=== PATIENT | female | born 1960 | race Caucasian/White ===

== ENCOUNTER 2017-03-24 16:14 | Emergency (ER) | payer MEDICARE, MEDICAID ==
--- NOTE | 2017-03-24 17:12 | RAD ---
CHEST TWO VIEWS 03/24/17 HISTORY: Cough. COMPARISON: 03/16/17. FINDINGS: Cardiac silhouette and pulmonary vasculature are unremarkable. Mediastinum is midline. There is no co nfluent air space consolidation, pneumothorax, or pleural fluid evident. IMPRESSION: No active cardiopulmonary abnormalities are demonstrated. POS: [facility]
== END 2017-03-24 17:35 | disposition home or self-care (01) ==
LOC: SCSER 16:14
DX: J01.90 Acute sinusitis, unspecified (principal); J45.909 Unspecified asthma, uncomplicated; J38.3 Other diseases of vocal cords; E78.5 Hyperlipidemia, unspecified; I10 Essential (primary) hypertension; F41.9 Anxiety disorder, unspecified; F32.9 Major depressive disorder, single episode, unspecified; Z86.73 Personal history of transient ischemic attack (TIA), and cerebral infarction without residual deficits; Z79.899 Other long term (current) drug therapy; I25.2 Old myocardial infarction
CPT/HCPCS: 71046; 94640; J7620

== ENCOUNTER 2017-06-21 13:58 | Outpatient (CLI) | payer MEDICARE, MEDICAID ==
--- NOTE | 2017-06-21 15:36 | RAD ---
THREE VIEWS LUMBAR SPINE: INDICATION: History of back surgery and back pain. FINDINGS: Standing neutral examination demonstrates grade I anterolisthesis of L4 on L5. There is moderate to severe degenerative disk disease at L3-4 through L5-S1. There is slight retrolisthesis of L3 on L4 w ith extension. No additional abnormal translational motion is noted. There are surgical clips seen within the lower pelvis. No acute fracture is evident. IMPRESSION: 1. Grade I anterolisthesis of L4 on L5 has developed since the comparison dated 09/17/09. No abnorma l translational motion is evident at this level. 2. Mild retrolisthesis is seen at L3 on L4 with extension only with reduction in the neutral and fle xion positions. POS: [facility]
== END 2017-06-21 13:59 | disposition home or self-care (01) ==
LOC: TBSIIMAG 13:58
PROVIDERS: ATTEND Neurological Surgery
DX: M54.16 Radiculopathy, lumbar region (principal); M43.16 Spondylolisthesis, lumbar region
CPT/HCPCS: 72100

== ENCOUNTER 2017-07-17 14:16 | Outpatient (CLI) | payer MEDICARE, MEDICAID ==
--- NOTE | 2017-07-17 16:38 | EKG ---
Test Reason : Blood Pressure : / mmHG Vent. Rate : 068 BPM Atrial Rate : 068 BPM P-R Int : 152 ms QRS Dur : 090 ms QT Int : 378 ms P-R-T Axes : 042 022 015 degrees QTc Int : 401 ms Normal sinus rhythm Normal ECG When compared with ECG of 07-JUN-2014 07:35, No significant change was found Confirmed by DOMINGO STEWART ([id number]) on 07/17/2017 4:38:23 PM Referred By: MARCIE Confirmed By:DOMINGO STEWART
[2017-07-17 16:40] LABS: Anion Gap 13 mmol/L (10-20); BUN (Urea Nitrogen) 16 mg/dL (9.8-20.1); Calc. Creatinine Clearance 0 mL/min (70-130); Calcium 9.8 mg/dL (7.8-10.44); Carbon Dioxide 26 mmol/L (22-29); Chloride 104 mmol/L (98-107); Estimated GFR-MDRD 62; Glucose 97 mg/dL (70-105); Potassium 4.7 mmol/L (3.5-5.1); Sodium 138 mmol/L (136-145)
== END 2017-07-17 14:17 | disposition home or self-care (01) ==
LOC: LABBT 14:16
PROVIDERS: ATTEND Neurological Surgery
DX: Z01.818 Encounter for other preprocedural examination (principal); M54.16 Radiculopathy, lumbar region
CPT/HCPCS: 80048; 93005; 93010

== ENCOUNTER 2017-07-24 07:35 | Day surgery (SDC) | payer MEDICARE, MEDICAID ==
[2017-07-17 14:43] VITALS: BMI 34.7
--- NOTE | 2017-07-23 23:13 | HP ---
DATE OF ADMISSION: 07/24/2017 HISTORY OF PRESENT ILLNESS: Ms. Ornelas presents today for evaluation of chronic history of lower back pain with radicular components from time to time, her steroid begins in 1990 with a fall and 2 lumba r surgeries where she reports 3.5 years recovery, on rehab, motor dysfunction of the left lower extre mity. She has now been with new total left lower extremity numbness since that time, since late fall or Pelzer time last year, she has now also developed right lower extremity L5 pain that is starti ng to include numbness as well. She has received several injections with pain management, [facility] Moreno which only provided short term relief. MRI from [facility] reveals grade 1 anterolisthesis of L4-L5 and grade 1 retrolisthesis at L5-S1. There is superimposed severe foraminal stenosis on the right at L5 which matches her symptoms well. The interpedicular distance at this le yuan is narrowed due to degenerative disk disease at L5. She does have significant back pain as well, but her major concern is that of radiating pain and numbness in the right lower extremity. PAST MEDICAL HISTORY: Essential hypertension, migraine headaches, asthma, depression, bipolar disord er, chronic lower back pain. ALLERGIES: CODEINE, CLONIDINE, and ASPIRIN. PAST SURGICAL HISTORY: Two lumbar decompressions. PHYSICAL EXAMINATION: The patient is alert and oriented x3. Gait is mildly antalgic. Lower extremi ty motor exam appears to be normal in all movements. She does exhibit poor effort in the right lower extremity movements. Gait is unaffected. ASSESSMENT: Lumbar radiculopathy, spondylolisthesis and back pain. PLAN: Dr. Delacruz met with the patient, reviewed imaging and advocated for an L4-S1 decompression and fusion. He explained to the patient the risks, benefits, and alternatives of the procedure. The pat ient expressed understanding and would like to move forward surgery as discussed. I do believe the p atient is mentally competent and capable of making medical decisions for herself and we will move for kramer with surgery as planned. Diaz Pablo PA-C, dictating under Pranav Delacruz M.D.
[2017-07-24] MEDS ORDERED: CEFAZOLIN/Water 2 GM/20 ML SYRINGE ONE ×2 (07:44→14:29)
[2017-07-24] MEDS ORDERED: Bupivacaine HCl 0.5%/Epinephrine 1:200,000/PF 30 ml Vial ONE (07:49)
[2017-07-24] MEDS ORDERED: Thrombin 5000 UNITS/5 ML VIAL ONE (07:49)
[2017-07-24] MEDS ORDERED: Morphine 4 MG/ML VIAL ONE (08:01)
[2017-07-24] MEDS ORDERED: Fentanyl 100 MCG/2 ML VIAL ONE (08:12)
[2017-07-24] MEDS ORDERED: Ondansetron HCl/PF 4 MG/2 ML Vial ONE (10:41)
[2017-07-24] MEDS ORDERED: PROPOFOL 200 MG/20 ML VIAL ONE (10:41)
[2017-07-24] MEDS ORDERED: Lidocaine 1% PF 5 ML VIAL ONE (10:41)
[2017-07-24] MEDS ORDERED: ePHEDrine/0.9% NaCl/PF SYRINGE 50 mg/10 ml ONE (10:41)
[2017-07-24] MEDS ORDERED: Morphine 10 MG/ML VIAL ONE (11:04)
--- NOTE | 2017-07-24 12:37 | OP ---
DATE OF PROCEDURE: 07/24/2017 SURGEON: Pranav Delacruz M.D. TIGHT BARREL INSPECTOR: Diaz Pablo PA-C. INDICATION: Pain. DIAGNOSES: Advanced degenerative disk disease, lumbar radiculopathy and lumbar stenosis. PROCEDURES PERFORMED: L4 through S1 facetectomies, L4 through S1 posterior lateral instrumented fusi on, placement of allograft, placement of autograft. ANESTHESIA: General. TECHNIQUE: The patient was brought into the operating room and placed under general anesthesia. She was flipped from a supine to a prone position on the operating room table. A linear incision was pl anned spanning L4-S1. After prepping and draping and after an appropriate operative pause, the incis ion was created. The soft tissues were swept away from midline. Self-retaining retractors were plac ed in the wound for optimal exposure. After confirming appropriate levels with C-arm fluoroscopy, he milaminectomies and facetectomies were performed spanning L4-S1. After identification of the pedicle s as well as the exiting and descending nerve roots, pedicle screws were placed bilaterally at L4 thr ough S1. An intraoperative 3D CT scan was performed, which showed excellent placement of the hardwar e. After decorticating the bone around the screws, allograft and autograft material was placed along the lateral confines of the instrumentation construct. Wound was irrigated. Hemostasis was maintai patricia throughout. The wound was then closed in anatomic layers and a pressure dressing was applied. T here were no known procedural complications.
[2017-07-24] MEDS ORDERED: HYDROcodone/Acetaminophen 7.5/325 mg Tablet ONE (14:50)
== END 2017-07-24 15:25 | disposition home or self-care (01) ==
LOC: SDC 07:35
PROVIDERS: ATTEND Neurological Surgery
PROC: 0SG107J Fusion of 2 or more Lumbar Vertebral Joints with Autologous Tissue Substitute, Posterior Approach, Anterior Column, Open Approach (ICD-10-PCS; principal; 2017-07-24)
PROC: 0SG10KJ Fusion of 2 or more Lumbar Vertebral Joints with Nonautologous Tissue Substitute, Posterior Approach, Anterior Column, Open Approach (ICD-10-PCS; 2017-07-24)
DX: M48.061 Spinal stenosis, lumbar region without neurogenic claudication (principal); M43.16 Spondylolisthesis, lumbar region; M51.16 Intervertebral disc disorders with radiculopathy, lumbar region; I10 Essential (primary) hypertension; F31.9 Bipolar disorder, unspecified; Z88.5 Allergy status to narcotic agent; Z88.8 Allergy status to other drugs, medicaments and biological substances; Z79.899 Other long term (current) drug therapy; Z98.890 Other specified postprocedural states
CPT/HCPCS: 20931; 20936; 22612; 22614; 22842; 76001; C1713 ×2; C1768; 96374; J0670; J2001; J2270; J2405; J2704; J3010; J7620

== ENCOUNTER 2021-05-27 11:42 | Inpatient (IN) | payer MEDICARE, MEDICAID ==
[2021-06-01] MEDS ORDERED: EPINEPHrine 1 MG/ML AMP ONE (06:10)
[2021-06-01] MEDS ORDERED: Neomycin-Polymyxin 1 ML AMP ONE (06:10)
[2021-06-01] MEDS ORDERED: Bupivacaine PF 0.5% 30 ML VIAL ONE (06:10)
[2021-06-01] MEDS ORDERED: Thrombin 5000 UNITS/5 ML VIAL ONE (06:10)
[2021-06-01] MEDS ORDERED: Phenylephrine 10 MG/ML VIAL ONE (06:36)
[2021-06-01] MEDS ORDERED: Fentanyl 250 MCG/5 ML VIAL ONE (06:36)
[2021-06-01] MEDS ORDERED: diphenhydrAMINE 25 MG CAP PO PRN (06:41)
[2021-06-01] MEDS ORDERED: Milk Of Magnesia 30 ML UDCUP PO PRN (06:41)
[2021-06-01] MEDS ORDERED: Ondansetron PF 4 MG/2 ML Vial IVP PRN (06:41)
[2021-06-01] MEDS ORDERED: Promethazine HCl 25 MG/ML VIAL IM PRN ×2 (06:41→14:12)
[2021-06-01] MEDS ORDERED: Morphine 2 MG/ML VIAL SLOW IVP PRN (06:41)
[2021-06-01] MEDS ORDERED: Bisacodyl 10 MG SUPP PR PRN (06:41)
[2021-06-01] MEDS ORDERED: Acetaminophen 325 MG TAB PO PRN (06:41)
[2021-06-01] MEDS ORDERED: Mag-Al 1200 mg/1200 mg/30 ML UDCUP PO PRN (06:41)
[2021-06-01] MEDS ORDERED: traMADol HCl 50 MG TAB PO PRN (06:41)
[2021-06-01] MEDS ORDERED: ceFAZolin 2 GM/Dextrose 50 ML 2 GM in Premix Bag 1 BAG IVPB SCH (06:45)
[2021-06-01] MEDS ORDERED: ceFAZolin (BATCH) 2 GM/100 ML BAG ONE (06:50)
[2021-06-01] MEDS ORDERED: Midazolam HCl 2 mg/2 ml Vial ONE (06:50)
[2021-06-01] MEDS ORDERED: Albuterol Sulfate HFA (OR ONLY) ONE (06:59)
[2021-06-01] MEDS ORDERED: PROPOFOL 200 MG/20 ML VIAL ONE (07:14)
[2021-06-01] MEDS ORDERED: Ketorolac Tromethamine 30 MG/ML VIAL ONE (07:14)
[2021-06-01] MEDS ORDERED: PHENYLEPHRINE-NS 100 MCG/ML 10 ML SYRINGE ONE (07:14)
[2021-06-01] MEDS ORDERED: Ondansetron PF 4 MG/2 ML Vial ONE (07:14)
[2021-06-01] MEDS ORDERED: ePHEDrine 50 MG/ML VIAL ONE (07:14)
[2021-06-01] MEDS ORDERED: Glycopyrrolate 0.2 MG/ML 5 ML SYRINGE ONE (07:14)
[2021-06-01] MEDS ORDERED: Rocuronium Bromide 10 MG/ML (10ML VIAL) ONE (07:14)
[2021-06-01] MEDS ORDERED: Lidocaine 1% PF 5 ML VIAL ONE (07:14)
[2021-06-01] MEDS ORDERED: Non-Formulary Item 1 EACH (Gabapentin [Gabapentin] 800 MG Tablet) PO SCH (09:00)
[2021-06-01] MEDS ORDERED: ceFAZolin (BATCH) 2 GM in Premix Bag 1 BAG IVPB SCH (14:00)
[2021-06-01] MEDS ORDERED: Ondansetron HCl/PF 4 MG/2 ML Vial IVP PRN (14:12)
[2021-06-01] MEDS ORDERED: Promethazine HCl 25 MG/ML VIAL IVPB PRN (14:12)
[2021-06-01] MEDS ORDERED: Fentanyl 100 MCG/2 ML VIAL ONE ×2 (14:29→14:47)
[2021-06-01] MEDS ORDERED: HYDROmorphone 0.5 MG/0.5 ML SYRINGE ONE ×2 (15:37→15:54)
[2021-06-01 15:47] LABS: Platelet Count 223 thou/uL (130-400)
[2021-06-01] MEDS ORDERED: HYDROcodone/Acetaminophen 10/325 mg Tablet ONE (16:15)
[2021-06-01] MEDS ORDERED: Methocarbamol 1 GM in Sodium Chloride 0.9% 100 ML IVPB SCH (16:45)
[2021-06-01] MEDS: Gabapentin 400 MG CAP PO SCH ×3 (17:38→21:01)
[2021-06-01] MEDS: Sodium Chloride 0.9% 1,000 ML IV SCH ×2 (18:33→21:14)
[2021-06-01] MEDS: Potassium Chloride 10 MEQ TAB PO SCH ×2 (19:19→21:01)
[2021-06-01] MEDS: Lisinopril/Hydrochlorothiazide 10 mg/12.5 mg Tablet PO SCH (19:19)
[2021-06-01] MEDS: ceFAZolin (BATCH) 2 GM in Premix Bag 1 BAG IVPB SCH (21:01)
[2021-06-01] MEDS: HYDROcodone/Acetaminophen 10/325 mg Tablet PO PRN (21:01)
[2021-06-01] MEDS: Montelukast Sodium 10 mg Tablet PO SCH (21:01)
[2021-06-01 22:28] VITALS: BMI 39.9
[2021-06-02] MEDS: HYDROcodone/Acetaminophen 10/325 mg Tablet PO PRN ×2 (02:28→20:23)
[2021-06-02] MEDS: ceFAZolin (BATCH) 2 GM in Premix Bag 1 BAG IVPB SCH (05:30)
[2021-06-02] MEDS: HYDROcodone/Acetaminophen 7.5/325 mg Tablet PO PRN ×2 (08:43→13:18)
[2021-06-02] MEDS: Lisinopril/Hydrochlorothiazide 10 mg/12.5 mg Tablet PO SCH (08:44)
[2021-06-02] MEDS: Gabapentin 400 MG CAP PO SCH ×3 (08:44→20:23)
[2021-06-02] MEDS: Potassium Chloride 10 MEQ TAB PO SCH ×2 (08:44→20:23)
[2021-06-02] MEDS ORDERED: Albuterol Sulfate 2.5 mg/3 ml Neb NEB PRN (11:53)
[2021-06-02] MEDS: Sodium Chloride 0.9% 1,000 ML IV SCH ×3 (12:56→22:49)
[2021-06-02] MEDS: Baclofen 10 MG TAB PO SCH ×2 (13:19→17:20)
[2021-06-02] MEDS: Cephalexin 250 MG CAP PO SCH ×2 (13:20→17:21)
[2021-06-02] MEDS ORDERED: Tamsulosin HCl 0.4 MG CAP PO SCH (14:15)
[2021-06-02] MEDS: Lubiprostone 24 MCG CAP PO SCH (17:20)
[2021-06-02] MEDS: Cyclobenzaprine 10 MG TAB PO PRN (17:23)
[2021-06-02] MEDS: Famotidine 20 MG TAB PO SCH (20:22)
[2021-06-02] MEDS: Atorvastatin Calcium 10 MG TAB PO SCH (20:22)
[2021-06-02] MEDS: Venlafaxine HCl XR 150 MG CAP PO SCH (20:23)
[2021-06-02] MEDS: Montelukast Sodium 10 mg Tablet PO SCH (20:23)
[2021-06-02] MEDS ORDERED: Non-Formulary Item 1 EACH (Quetiapine Fumarate [Seroquel] 400 MG Tablet) PO SCH (21:00)
[2021-06-02] MEDS ORDERED: Venlafaxine HCl XR 75 MG CAP PO SCH (21:00)
[2021-06-02] MEDS ORDERED: RANITIDINE HCL 300 MG PO SCH (21:00)
[2021-06-02] MEDS ORDERED: Non-Formulary Item 1 EACH (Venlafaxine Hcl [Venlafaxine Hcl Er] 150 MG Tab.Er.24) PO SCH (21:00)
[2021-06-02] MEDS ORDERED: Sodium Chloride 0.9% 500 ML IV SCH (22:45)
[2021-06-03] MEDS: Cephalexin 250 MG CAP PO SCH ×4 (00:28→17:37)
[2021-06-03] MEDS: HYDROcodone/Acetaminophen 10/325 mg Tablet PO PRN ×2 (02:17→13:41)
[2021-06-03 05:48] LABS: Anion Gap 13 mmol/L (10-20); BUN (Urea Nitrogen) 9 mg/dL (9.8-20.1); Calc. Creatinine Clearance 152 mL/min (70-130); Carbon Dioxide 22 mmol/L (23-31); Chloride 108 mmol/L (98-107); Glucose 114 mg/dL (80-115); Potassium 3.9 mmol/L (3.5-5.1); Sodium 139 mmol/L (136-145)
[2021-06-03 07:33] LABS: #Eosinphils 0.1 thou/uL (0.0-0.7); #Lymphocytes 1.2 thou/uL (1.20-3.40); #Monocytes 0.5 thou/uL (0.11-0.59); %Basophils 0.2 % (0.0-1.0); %Eosinophils 1.4 % (0.0-10.0); %Lymphocytes 26.1 % (21.0-51.0); %Monocytes 9.8 % (0.0-10.0); %Neutrophils 62.5 % (42.0-75.0); Hemoglobin 6.4 g/dL (12.0-16.0); Mean Corpuscular HGB CONC 32.8 g/dL (32.0-36.0); Mean Corpuscular Hemoglobin 31.2 pg (27.0-31.0); Mean Corpuscular Volume 95.3 fL (78.0-98.0); Mean Platelet Volume 9.4 fL (7.4-10.4); Platelet Count 91 thou/uL (130-400); RBC Distribution Width 12.2 % (11.5-14.5); Red Blood Cell (RBC) Count 2.06 mill/uL (4.20-5.40); White Blood Cell (WBC) Count 4.8 thou/uL (4.8-10.8)
[2021-06-03 08:11] LABS: #Eosinphils 0.1 thou/uL (0.0-0.7); #Lymphocytes 1.2 thou/uL (1.20-3.40); #Monocytes 0.4 thou/uL (0.11-0.59); %Basophils 0.4 % (0.0-1.0); %Eosinophils 1.1 % (0.0-10.0); %Monocytes 9.2 % (0.0-10.0); %Neutrophils 64.2 % (42.0-75.0); Hemoglobin 6.2 g/dL (12.0-16.0); Mean Corpuscular HGB CONC 32.8 g/dL (32.0-36.0); Mean Corpuscular Volume 94.6 fL (78.0-98.0); Mean Platelet Volume 9.1 fL (7.4-10.4); Platelet Count 93 thou/uL (130-400); RBC Distribution Width 12.4 % (11.5-14.5); Red Blood Cell (RBC) Count 2.01 mill/uL (4.20-5.40); White Blood Cell (WBC) Count 4.7 thou/uL (4.8-10.8)
[2021-06-03] MEDS: Lubiprostone 24 MCG CAP PO SCH ×2 (08:37→17:37)
[2021-06-03] MEDS: Gabapentin 400 MG CAP PO SCH ×3 (08:37→20:50)
[2021-06-03] MEDS: Baclofen 10 MG TAB PO SCH ×3 (08:40→17:37)
[2021-06-03] MEDS: Potassium Chloride 10 MEQ TAB PO SCH ×2 (08:40→20:52)
[2021-06-03] MEDS: Lisinopril/Hydrochlorothiazide 10 mg/12.5 mg Tablet PO SCH (08:46)
[2021-06-03] MEDS ORDERED: Tamsulosin HCl 0.4 MG CAP PO SCH (09:00)
[2021-06-03] MEDS: Sodium Chloride 0.9% 1,000 ML IV SCH (12:07)
[2021-06-03] MEDS: HYDROcodone/Acetaminophen 7.5/325 mg Tablet PO PRN (15:33)
[2021-06-03] MEDS: Famotidine 20 MG TAB PO SCH (20:50)
[2021-06-03] MEDS: Atorvastatin Calcium 10 MG TAB PO SCH (20:50)
[2021-06-03] MEDS: Venlafaxine HCl XR 150 MG CAP PO SCH (20:51)
[2021-06-03] MEDS: Montelukast Sodium 10 mg Tablet PO SCH (20:52)
[2021-06-04] MEDS: HYDROcodone/Acetaminophen 10/325 mg Tablet PO PRN ×2 (00:10→19:27)
[2021-06-04] MEDS: Cephalexin 250 MG CAP PO SCH ×5 (00:11→23:46)
[2021-06-04] MEDS: Cyclobenzaprine 10 MG TAB PO PRN (01:09)
[2021-06-04 04:09] LABS: #Eosinphils 0.1 thou/uL (0.0-0.7); #Lymphocytes 1.2 thou/uL (1.20-3.40); #Monocytes 0.5 thou/uL (0.11-0.59); #Neutrophils 3.6 thou/uL (1.40-6.50); %Basophils 0.4 % (0.0-1.0); %Eosinophils 2.1 % (0.0-10.0); %Lymphocytes 21.8 % (21.0-51.0); %Monocytes 9.7 % (0.0-10.0); Hemoglobin 7.7 g/dL (12.0-16.0); Mean Corpuscular HGB CONC 33.6 g/dL (32.0-36.0); Mean Corpuscular Hemoglobin 31.3 pg (27.0-31.0); Platelet Count 120 thou/uL (130-400); RBC Distribution Width 12.9 % (11.5-14.5); Red Blood Cell (RBC) Count 2.46 mill/uL (4.20-5.40); White Blood Cell (WBC) Count 5.4 thou/uL (4.8-10.8)
[2021-06-04 04:24] LABS: Anion Gap 12 mmol/L (10-20); BUN (Urea Nitrogen) 7 mg/dL (9.8-20.1); Calc. Creatinine Clearance 164 mL/min (70-130); Calcium 8.4 mg/dL (7.8-10.44); Carbon Dioxide 23 mmol/L (23-31); Chloride 109 mmol/L (98-107); Glucose 104 mg/dL (80-115); Potassium 3.6 mmol/L (3.5-5.1); Sodium 140 mmol/L (136-145)
[2021-06-04] MEDS: Sodium Chloride 0.9% 1,000 ML IV SCH ×2 (07:52→14:43)
[2021-06-04 08:57] LABS: Prothrombin Time 13.2 sec (12.0-14.7)
[2021-06-04 08:58] LABS: PTT 32.7 sec (22.9-36.1)
[2021-06-04] MEDS: Baclofen 10 MG TAB PO SCH ×3 (10:28→17:16)
[2021-06-04] MEDS: Lubiprostone 24 MCG CAP PO SCH ×2 (10:28→17:16)
[2021-06-04] MEDS: Gabapentin 400 MG CAP PO SCH ×3 (10:28→21:20)
[2021-06-04] MEDS: Potassium Chloride 10 MEQ TAB PO SCH ×2 (10:29→21:23)
[2021-06-04 13:00] LABS: #Eosinphils 0.1 thou/uL (0.0-0.7); #Monocytes 0.5 thou/uL (0.11-0.59); #Neutrophils 4.1 thou/uL (1.40-6.50); %Basophils 0.2 % (0.0-1.0); %Eosinophils 1.8 % (0.0-10.0); %Lymphocytes 16.9 % (21.0-51.0); %Monocytes 8.2 % (0.0-10.0); Hemoglobin 9.2 g/dL (12.0-16.0); Mean Corpuscular HGB CONC 33.6 g/dL (32.0-36.0); Mean Corpuscular Hemoglobin 30.9 pg (27.0-31.0); Mean Corpuscular Volume 92.1 fL (78.0-98.0); Mean Platelet Volume 8.7 fL (7.4-10.4); Platelet Count 131 thou/uL (130-400); RBC Distribution Width 13.3 % (11.5-14.5); Red Blood Cell (RBC) Count 2.96 mill/uL (4.20-5.40); White Blood Cell (WBC) Count 5.6 thou/uL (4.8-10.8)
[2021-06-04] MEDS ORDERED: traMADol HCl 50 MG TAB PO PRN (19:54)
[2021-06-04] MEDS ORDERED: tiZANidine HCl 4 MG TAB PO PRN (19:55)
[2021-06-04] MEDS: Famotidine 20 MG TAB PO SCH (21:20)
[2021-06-04] MEDS: Montelukast Sodium 10 mg Tablet PO SCH (21:21)
[2021-06-04] MEDS: Venlafaxine HCl XR 150 MG CAP PO SCH (21:21)
[2021-06-04] MEDS: Atorvastatin Calcium 10 MG TAB PO SCH (21:22)
[2021-06-05 05:14] LABS: #Eosinphils 0.2 thou/uL (0.0-0.7); #Lymphocytes 1.4 thou/uL (1.20-3.40); #Monocytes 0.5 thou/uL (0.11-0.59); #Neutrophils 2.6 thou/uL (1.40-6.50); %Basophils 0.7 % (0.0-1.0); %Eosinophils 4.2 % (0.0-10.0); %Lymphocytes 29.5 % (21.0-51.0); %Neutrophils 54.6 % (42.0-75.0); Hemoglobin 9.2 g/dL (12.0-16.0); Mean Corpuscular HGB CONC 33.6 g/dL (32.0-36.0); Mean Corpuscular Hemoglobin 31.1 pg (27.0-31.0); Mean Corpuscular Volume 92.6 fL (78.0-98.0); Mean Platelet Volume 9.4 fL (7.4-10.4); Platelet Count 157 thou/uL (130-400); RBC Distribution Width 13.5 % (11.5-14.5); Red Blood Cell (RBC) Count 2.96 mill/uL (4.20-5.40); White Blood Cell (WBC) Count 4.8 thou/uL (4.8-10.8)
[2021-06-05 05:32] LABS: Anion Gap 12 mmol/L (10-20); BUN (Urea Nitrogen) 7 mg/dL (9.8-20.1); Calc. Creatinine Clearance 152 mL/min (70-130); Calcium 8.7 mg/dL (7.8-10.44); Carbon Dioxide 25 mmol/L (23-31); Chloride 108 mmol/L (98-107); Glucose 103 mg/dL (80-115); Potassium 3.6 mmol/L (3.5-5.1); Sodium 141 mmol/L (136-145)
[2021-06-05] MEDS: Sodium Chloride 0.9% 1,000 ML IV SCH (05:43)
[2021-06-05] MEDS: Cephalexin 250 MG CAP PO SCH (06:54)
[2021-06-05] MEDS: HYDROcodone/Acetaminophen 10/325 mg Tablet PO PRN (07:16)
[2021-06-05 07:38] VITALS: BP 130/79; TEMP 98.5
[2021-06-05] MEDS: Lubiprostone 24 MCG CAP PO SCH (08:23)
[2021-06-05] MEDS: Baclofen 10 MG TAB PO SCH (08:23)
[2021-06-05] MEDS: Potassium Chloride 10 MEQ TAB PO SCH (08:23)
[2021-06-05] MEDS: Gabapentin 400 MG CAP PO SCH (08:23)
[2021-06-08 11:18] LABS: Fungus Stain Final report (.)
== END 2021-06-05 11:46 | disposition home or self-care (01) | DRG 454 ==
LOC: SURG A 06-01 05:28 → MSONC 06-01 18:19
PROVIDERS: ADMIT Neurological Surgery; ATTEND Hospitalist
PROC: 0SG00AJ Fusion of Lumbar Vertebral Joint with Interbody Fusion Device, Posterior Approach, Anterior Column, Open Approach (ICD-10-PCS; 2021-06-01)
PROC: 0SG1071 Fusion of 2 or more Lumbar Vertebral Joints with Autologous Tissue Substitute, Posterior Approach, Posterior Column, Open Approach (ICD-10-PCS; 2021-06-01)
PROC: 0SG3071 Fusion of Lumbosacral Joint with Autologous Tissue Substitute, Posterior Approach, Posterior Column, Open Approach (ICD-10-PCS; 2021-06-01)
PROC: 01NB0ZZ Release Lumbar Nerve, Open Approach (ICD-10-PCS; 2021-06-01)
PROC: 01NR0ZZ Release Sacral Nerve, Open Approach (ICD-10-PCS; 2021-06-01)
PROC: 0SP004Z Removal of Internal Fixation Device from Lumbar Vertebral Joint, Open Approach (ICD-10-PCS; 2021-06-01)
PROC: 30233K1 Transfusion of Nonautologous Frozen Plasma into Peripheral Vein, Percutaneous Approach (ICD-10-PCS; principal; 2021-06-03)
PROC: 30233N1 Transfusion of Nonautologous Red Blood Cells into Peripheral Vein, Percutaneous Approach (ICD-10-PCS; 2021-06-03)
DX: M43.16 Spondylolisthesis, lumbar region (principal); D62 Acute posthemorrhagic anemia; M47.26 Other spondylosis with radiculopathy, lumbar region; Z98.1 Arthrodesis status; I10 Essential (primary) hypertension; G43.909 Migraine, unspecified, not intractable, without status migrainosus; J45.909 Unspecified asthma, uncomplicated; F31.9 Bipolar disorder, unspecified; G89.29 Other chronic pain; E78.00 Pure hypercholesterolemia, unspecified; M48.062 Spinal stenosis, lumbar region with neurogenic claudication; I95.9 Hypotension, unspecified; R33.9 Retention of urine, unspecified; M54.50 Low back pain, unspecified; Z79.899 Other long term (current) drug therapy; Z88.6 Allergy status to analgesic agent; Z88.5 Allergy status to narcotic agent; Z88.8 Allergy status to other drugs, medicaments and biological substances; Z91.018 Allergy to other foods; Z91.011 Allergy to milk products
CPT/HCPCS: 36415; 36430; 76000; 80048; 85014; 85018; 85025; 85049; 85610; 85730; 86850; 86900; 86901; 87070; 87086; 87102; 87205; 87206; C1713; C1768; C1776; J0171; J0690; J1170; J1885; J2250; J2370; J2405; J2550; J2704; J2800; J3010; J3370; J3490; J7030; J7050; P9016; P9035; S0020

== ENCOUNTER 2021-08-06 12:36 | Outpatient (CLI) | payer MEDICARE, MEDICAID | END 2021-08-06 12:37 | disposition home or self-care (01) | LOC: TBSIIMAG 12:36 | PROVIDERS: ATTEND Neurological Surgery | DX: M48.062 Spinal stenosis, lumbar region with neurogenic claudication (principal); Z98.890 Other specified postprocedural states | CPT/HCPCS: 72100 ==